=== PATIENT | female | born 1935 | race Caucasian/White ===

== ENCOUNTER 2020-11-30 01:04 | Emergency (ER) | payer MEDICARE, OTHER ==
[~2020-11-30] VITALS: Ht 152.4 cm; Wt 72.7 kg
[~2020-11-30 01:04] MED LIST: PRED20TA PO
[2020-11-30] MEDS ORDERED: ibuprofen 200mg tablet PO ONE (01:40)
[2020-11-30 03:40] LABS: CLARITY,URINE CLEAR (Clear); COLOR,URINE YELLOW (Yellow); GLUCOSE, URINE NEGATIVE (Neg); KETONES,URINE NEGATIVE (Neg); LEUKOCYTE ESTERASE ,URINE NEGATIVE (Neg); NITRITES, URINE NEGATIVE (Neg); OCCULT BLOOD,URINE NEGATIVE (Neg); PROTEIN,URINE 30 mg/dl (Neg); UROBILINOGEN,URINE 0.2 E.U/dL (0.2-1.0)
[2020-11-30 03:51] LABS: UA COLLECTION TYPE CLN CATCH MIDSTREAM
[2020-11-30 03:56] LABS: BACTERIA,URINE NONE SEEN /HPF (Neg); MUCUS STRANDS FEW /LPF (Neg); RBC,URINE NONE SEEN /HPF (0-2); SQUAMOUS EPITHELIAL CELL,UR FEW /LPF (FEW); WBC,URINE 0-4 /HPF (0-4)
[2020-11-30] MEDS ORDERED: SULF1TAB48 PO (04:38)
[2020-11-30] MEDS ORDERED: sulfamethoxazole/trimethoprim DS (800/160mg) tablet PO ONE (04:40)
[2020-11-30 04:54] VITALS: BP 114/56
[2020-12-02] MEDS ORDERED: METO-395 PO (19:13)
[2020-12-02] MEDS ORDERED: AMLO2.5T2 PO (19:13)
[2020-12-02] MEDS ORDERED: ASPI81TA52 PO (19:13)
[2020-12-03] MEDS ORDERED: AMLO5TAB PO (07:11)
== END 2020-11-30 04:50 | disposition home or self-care (01) ==
LOC: ER 01:04 → MERGE 01:04 → ER 04:50
DX: U07.1 COVID-19 (principal); R30.0 Dysuria; Z86.16 Personal history of COVID-19; Z88.1 Allergy status to other antibiotic agents; Z88.6 Allergy status to analgesic agent; Z87.440 Personal history of urinary (tract) infections; Z79.899 Other long term (current) drug therapy
CPT/HCPCS: 71045; 81001; 99285